=== PATIENT | female | born 1985 | race American Indian/Alaskan Native ===

== ENCOUNTER 2016-09-11 09:57 | Emergency (ER) | payer MEDICAID ==
[~2016-09-11] VITALS: Ht 160 cm; Wt 73.5 kg
[2016-09-11 11:42] VITALS: BP 149/58
== END 2016-09-11 13:57 | disposition home or self-care (01) ==
LOC: ER 09:57
DX: S00.03XA Contusion of scalp, initial encounter (principal); S50.11XA Contusion of right forearm, initial encounter; S60.212A Contusion of left wrist, initial encounter; S00.431A Contusion of right ear, initial encounter; Y08.89XA Assault by other specified means, initial encounter; Y93.89 Activity, other specified; Y99.8 Other external cause status; Y92.89 Other specified places as the place of occurrence of the external cause
CPT/HCPCS: 70450

== ENCOUNTER 2016-12-27 23:38 | Emergency (ER) | payer MEDICAID | END 2016-12-28 04:40 | disposition left against medical advice (07) | LOC: ER 23:38 | DX: H57.11 Ocular pain, right eye (principal); Z53.21 Procedure and treatment not carried out due to patient leaving prior to being seen by health care provider; Y08.89XA Assault by other specified means, initial encounter; Y93.89 Activity, other specified; Y99.8 Other external cause status; Y92.89 Other specified places as the place of occurrence of the external cause | CPT/HCPCS: 70486 ==